=== PATIENT | male | born 1945 | race Caucasian/White ===

== ENCOUNTER 2019-04-21 10:06 | Day surgery (SDC) | payer OTHER, MEDICAID ==
[~2019-04-21] VITALS: Ht 160 cm; Wt 82.6 kg
[2019-04-21] MEDS ORDERED: MIDAZOLAM HCL 5 MG/5 ML VIAL IVP ONE (13:15)
[2019-04-21] MEDS ORDERED: LR 1,000 ML IV.SOLN IV ONE (13:15)
[2019-04-21] MEDS ORDERED: PROPOFOL 200MG/ 20ML VIAL (DIPRIVAN) IV ONE (13:15)
[2019-04-21] MEDS ORDERED: NS IRRIG SOLN 1000 ML IR ONE (13:15)
[2019-04-21 14:38] VITALS: BP_SYST 142
== END 2019-04-21 15:40 | disposition home or self-care (01) ==
LOC: SDS 10:06 → SMU 10:06 → SDS 15:40
PROVIDERS: ATTEND Surgery
DX: Z12.11 Encounter for screening for malignant neoplasm of colon (principal); K57.30 Diverticulosis of large intestine without perforation or abscess without bleeding; K64.8 Other hemorrhoids; K64.4 Residual hemorrhoidal skin tags; I10 Essential (primary) hypertension; M19.90 Unspecified osteoarthritis, unspecified site; E11.40 Type 2 diabetes mellitus with diabetic neuropathy, unspecified; G47.30 Sleep apnea, unspecified; E11.9 Type 2 diabetes mellitus without complications; K21.9 Gastro-esophageal reflux disease without esophagitis; E66.9 Obesity, unspecified
CPT/HCPCS: 45378; 82962; J2250; J2704; J7120